=== PATIENT | female | born 1940 | race Caucasian/White ===

== ENCOUNTER 2016-06-27 10:51 | Outpatient (CLI) | payer MEDICARE, BC | END 2016-06-27 10:52 | disposition home or self-care (01) | LOC: HPCALD 10:51 | PROVIDERS: ATTEND Family Medicine | DX: E03.9 Hypothyroidism, unspecified (principal) | CPT/HCPCS: 36415; 84443 ==

== ENCOUNTER 2016-12-27 14:40 | Outpatient (CLI) | payer MEDICARE, BC | END 2016-12-27 14:41 | disposition home or self-care (01) | LOC: HPCALD 14:40 | PROVIDERS: ATTEND Family Medicine | DX: E03.9 Hypothyroidism, unspecified (principal) | CPT/HCPCS: 36415; 84443 ==

== ENCOUNTER 2019-12-22 11:38 | Emergency (ER) | payer MEDICARE, BC ==
[2019-12-22] MEDS ORDERED: Adacel (T-DAP) 0.5 ML SYRINGE ONE (12:24)
--- NOTE | 2019-12-22 15:30 | CT ---
CT OF THE BRAIN WITHOUT CONTRAST: DATE: 12/22/2019. FINDINGS: Comparison is made with the prior CT dated 05/18/2007. The ventricles are normal in size for age and atrophy. There is some mild patchy hypolucency in the deep white matter, perhaps a little more so in the left frontal region and right parietal area, most consistent with chronic ischemic change. There was no extraaxial hematoma or intracranial bleeding. No edema was seen. There is a large coarse, dense calcification in the posterior fossa low in the midline near the botto m of the 4th ventricle and the vermis of the cerebellum. This was present on old scans. The calcifi cation has grown over time and measures 1.6 cm today. It seems most likely that it is related to a b enign tumor such as a meningioma. This is based upon prior imaging, including an MRI. The skull gail ears intact with no sign of fracture. The visible paranasal sinuses are clear, as are the mastoid ai r cells. The nasal bones appeared intact, as did the zygomatic arches. IMPRESSION: Chronic changes, but no acute traumatic intracranial findings. Initial report called to Dr. Mike at 12:10 on 12/22/2019. CODE CR POS: HOME
== END 2019-12-22 12:30 | disposition home or self-care (01) ==
LOC: BURERS 11:38
DX: S01.81XA Laceration without foreign body of other part of head, initial encounter (principal); S01.511A Laceration without foreign body of lip, initial encounter; E03.9 Hypothyroidism, unspecified; I10 Essential (primary) hypertension; Z87.891 Personal history of nicotine dependence; Z79.899 Other long term (current) drug therapy; E78.00 Pure hypercholesterolemia, unspecified; Z79.82 Long term (current) use of aspirin; Z23 Encounter for immunization; W18.30XA Fall on same level, unspecified, initial encounter
CPT/HCPCS: 12013; 70450; 90471; 90715